=== PATIENT | male | born 1975 | race Hispanic/Latino ===

== ENCOUNTER 2019-01-20 14:17 | Inpatient (IN) | payer SELFPAY ==
[~2019-01-20] VITALS: Ht 185.4 cm; Wt 87.7 kg
[2019-01-20] MEDS: SODIUM CHLORIDE 0.9% 1000ML 1,000 ML IV SCH (12:05)
[2019-01-20] MEDS ORDERED: FAMOTIDINE/PF 20 MG/2 ML VIAL IV ONE (14:39)
[2019-01-20] MEDS ORDERED: METHYLPREDNISOLONE SOD SUCC 125MG/2ML VIAL ONE (14:39)
[2019-01-20] MEDS ORDERED: DiphenhydrAMINE HCL 50 MG/ML VIAL ONE (14:39)
[2019-01-20] MEDS ORDERED: SODIUM CHLORIDE 0.9% 1000ML 1,000 ML IV ONE ×3 (15:16→20:41)
[2019-01-20] MEDS ORDERED: INSULIN HUMULIN R 100 UNIT/ML 3ML ONE ×2 (16:52→19:01)
[2019-01-20 16:59] LABS: BASOPHILS % (AUTO) 0.3 % (0.0-5.0); EOSINOPHILS % (AUTO) 0.4 % (0.0-8.0); HEMATOCRIT 45.8 % (42-54); LYMPHOCYTES % (AUTO) 9.6 % (21.0-51.0); MEAN CORPUSCULAR HEMOGLOBIN 32.2 pg (27.0-33.0); MEAN CORPUSCULAR VOLUME 94.6 fL (79-99); MONOCYTES % (AUTO) 3.8 % (3.0-13.0); NEUTROPHILS % (AUTO) 85.9 % (40.0-77.0); NUCLEATED RED BLOOD CELLS 0.1 % (0.0-0.19); PLATELET COUNT (AUTO) 202 K/uL (130-400); RED BLOOD CELL COUNT(AUTO) 4.85 MIL/uL (4.50-6.20); RED CELL DISTRIBUTION WIDTH 12.7 % (11.0-15.5); WHITE BLOOD COUNT (AUTO) 13.7 K/uL (4.8-10.8)
[2019-01-20 17:14] LABS: ALBUMIN 3.3 g/dL (3.5-5.0); BILIRUBIN,TOTAL 0.6 mg/dL (0.2-1.0); CREATININE 0.7 mg/dL (0.5-1.5); POTASSIUM 4.3 mmol/L (3.5-5.1); TOTAL PROTEIN, SERUM 6.7 g/dL (6.0-8.3)
[2019-01-20] MEDS ORDERED: SODIUM CHLORIDE 0.9% 100 ML IV ONE (19:00)
[2019-01-20] MEDS ORDERED: INSULIN REGULAR, HUMAN 3ML 100 UNIT in SODIUM CHLORIDE 0.9% 99 ML IV PRN ×2 (21:00)
[2019-01-20 21:12] LABS: APPEARANCE,URINE Clear (CLEAR); BILIRUBIN,URINE Negative (NEGATIVE); COLOR,URINE Yellow (YELLOW); GLUCOSE, URINE (UA) >=1000 mg/dL (NEGATIVE); KETONES,URINE 40 mg/dL (NEGATIVE); LEUKOCYTE ESTERASE ,URINE Negative (NEGATIVE); NITRATE,URINE Negative (NEGATIVE); OCCULT BLOOD,URINE Negative (NEGATIVE); PROTEIN,URINE Negative (NEGATIVE)
[2019-01-20] MEDS ORDERED: NITROGLYCERIN 0.4 MG SL TAB SL PRN (21:15)
[2019-01-20] MEDS ORDERED: MAG HYDROX/AL HYDROX/SIMETH ES 30 ML SUSP UDCUP PO PRN (21:15)
[2019-01-20] MEDS ORDERED: GUAIFENESIN SUGAR-FREE 100 MG/5 ML UDCUP PO PRN (21:15)
[2019-01-20] MEDS ORDERED: ACETAMINOPHEN 325 MG TAB PO PRN ×2 (21:15)
[2019-01-20] MEDS ORDERED: LACTULOSE 20 GM/30 ML UDCUP PO PRN (21:15)
[2019-01-20] MEDS ORDERED: ONDANSETRON HCL 4 MG/2 ML VIAL IVP PRN (21:15)
[2019-01-20 21:27] LABS: BACTERIA,URINE None Seen /HPF (None Seen); RBC,URINE 0-1 /HPF (0-1); WBC,URINE 0-1 /HPF (0-1)
[2019-01-21 06:36] LABS: BASOPHILS % (AUTO) 0.4 % (0.0-5.0); HEMATOCRIT 42.8 % (42-54); LYMPHOCYTES % (AUTO) 21.6 % (21.0-51.0); MEAN CORPUSCULAR HEMOGLOBIN 32.7 pg (27.0-33.0); MEAN CORPUSCULAR HGB CONC 34.7 g/dL (32.0-36.0); MEAN CORPUSCULAR VOLUME 94.2 fL (79-99); MONOCYTES % (AUTO) 5.1 % (3.0-13.0); NEUTROPHILS % (AUTO) 72.9 % (40.0-77.0); PLATELET COUNT (AUTO) 187 K/uL (130-400); RED BLOOD CELL COUNT(AUTO) 4.55 MIL/uL (4.50-6.20); RED CELL DISTRIBUTION WIDTH 12.9 % (11.0-15.5)
[2019-01-21 06:46] LABS: CREATININE 0.4 mg/dL (0.5-1.5); POTASSIUM 3.9 mmol/L (3.5-5.1)
[2019-01-21 06:53] LABS: BILIRUBIN,TOTAL 0.5 mg/dL (0.2-1.0); TOTAL PROTEIN, SERUM 5.8 g/dL (6.0-8.3)
[2019-01-21] MEDS: ENOXAPARIN SODIUM 40 MG/0.4 ML SYRINGE SQ SCH (09:00)
[2019-01-21] MEDS: FAMOTIDINE 20MG TAB 20 MG TAB PO SCH ×2 (09:00→21:21)
[2019-01-21] MEDS ORDERED: DIPHENHYDRAMINE HCL 25 MG CAPSULE PO PRN (10:45)
[2019-01-21 12:18] VITALS: BP 123/81
[2019-01-21] MEDS: INSULIN LISPRO 100 UNIT/ML 3ML SQ SCH ×2 (12:26→17:10)
[2019-01-21 16:00] VITALS: BP 114/78
[2019-01-21] MEDS: SODIUM CHLORIDE 0.9% 1000ML 1,000 ML IV SCH ×2 (17:00→22:53)
[2019-01-21 20:00] VITALS: BP 136/87
[2019-01-21] MEDS ORDERED: INSULIN HUMULIN R 100 UNIT/ML 3ML ONE (22:43)
[2019-01-21] MEDS: INSULIN HUMULIN R 100 UNIT/ML 3ML SQ SCH (22:58)
[2019-01-21] MEDS: INSULIN GLARGINE 100 UNITS/ML 10 ML VIAL SQ SCH (23:01)
[2019-01-22] VITALS: BP 139/97
[2019-01-22 04:00] VITALS: BP 127/77
[2019-01-22] MEDS: SODIUM CHLORIDE 0.9% 1000ML 1,000 ML IV SCH ×3 (06:54→19:40)
[2019-01-22] MEDS: INSULIN HUMULIN R 100 UNIT/ML 3ML SQ SCH ×4 (06:57→21:45)
[2019-01-22] MEDS: INSULIN LISPRO 100 UNIT/ML 3ML SQ SCH ×3 (06:58→18:01)
[2019-01-22 08:00] VITALS: BP 126/79
[2019-01-22] MEDS: ENOXAPARIN SODIUM 40 MG/0.4 ML SYRINGE SQ SCH (08:59)
[2019-01-22] MEDS: FAMOTIDINE 20MG TAB 20 MG TAB PO SCH ×2 (08:59→21:39)
[2019-01-22] MEDS ORDERED: PREDNISONE 10 MG TABLET PO SCH (09:00)
[2019-01-22 11:42] VITALS: BP 150/97
[2019-01-22 16:00] VITALS: BP 137/73
--- NOTE | 2019-01-22 18:00 | NUR ---
INITIAL MET W PT ALONE. DM X 10 YEARS, NO MD, GETS HIS INSULIN FROM HIS FRIENDS- STATES WENT ONCE TO [place] BUT THEIR WAS A LONG WAITING LIST STATES DID NOT FILL OUT THE FORM BECAUSE HE DID NOT WANT TO GIVE INFORMATION ABOUT THE FMAILY HE WAS LIVING WITH ENCOURAGE TO REAPPLY- NOW LIVES W SPOUSE- NO INCOME, [employer] DISCUSSED Addendum: 01/22/19 at 1843 by ASHLY LÓPEZ RN CM Amended: Links added.
[2019-01-22 20:00] VITALS: BP 142/84
[2019-01-22] MEDS ORDERED: INSULIN GLARGINE 100 UNITS/ML 10 ML VIAL SQ SCH (21:00)
[2019-01-22] MEDS: INSULIN GLARGINE 100 UNITS/ML 10 ML VIAL SQ SCH (21:46)
[2019-01-23] VITALS: BP 149/92
[2019-01-23] MEDS: SODIUM CHLORIDE 0.9% 1000ML 1,000 ML IV SCH ×2 (02:58→11:49)
[2019-01-23 04:00] VITALS: BP 145/79
[2019-01-23 06:13] LABS: BASOPHILS % (AUTO) 0.3 % (0.0-5.0); HEMATOCRIT 40.1 % (42-54); LYMPHOCYTES % (AUTO) 45.7 % (21.0-51.0); MEAN CORPUSCULAR HEMOGLOBIN 33.3 pg (27.0-33.0); MEAN CORPUSCULAR HGB CONC 34.3 g/dL (32.0-36.0); MEAN CORPUSCULAR VOLUME 97.1 fL (79-99); MONOCYTES % (AUTO) 6.9 % (3.0-13.0); NEUTROPHILS % (AUTO) 46.1 % (40.0-77.0); NUCLEATED RED BLOOD CELLS 0.1 % (0.0-0.19); PLATELET COUNT (AUTO) 167 K/uL (130-400); RED BLOOD CELL COUNT(AUTO) 4.13 MIL/uL (4.50-6.20); RED CELL DISTRIBUTION WIDTH 12.6 % (11.0-15.5); WHITE BLOOD COUNT (AUTO) 9.9 K/uL (4.8-10.8)
[2019-01-23 06:19] LABS: HEMOGLOBIN A1C 12.9 % (4.0-6.0)
[2019-01-23 06:22] LABS: ALBUMIN 2.5 g/dL (3.5-5.0); BILIRUBIN,TOTAL 0.1 mg/dL (0.2-1.0); CREATININE 0.7 mg/dL (0.5-1.5); POTASSIUM 3.5 mmol/L (3.5-5.1); TOTAL PROTEIN, SERUM 5.3 g/dL (6.0-8.3)
[2019-01-23] MEDS: INSULIN HUMULIN R 100 UNIT/ML 3ML SQ SCH ×4 (06:57→21:00)
[2019-01-23] MEDS: INSULIN LISPRO 100 UNIT/ML 3ML SQ SCH ×3 (06:58→16:57)
[2019-01-23 07:54] VITALS: BP 127/83
[2019-01-23] MEDS: ENOXAPARIN SODIUM 40 MG/0.4 ML SYRINGE SQ SCH (09:00)
[2019-01-23 11:38] VITALS: BP 139/89
[2019-01-23] MEDS: FAMOTIDINE 20MG TAB 20 MG TAB PO SCH ×2 (11:50→21:00)
[2019-01-23 16:00] VITALS: BP 130/85
[2019-01-23 20:00] VITALS: BP 142/96
[2019-01-23] MEDS: INSULIN GLARGINE 100 UNITS/ML 10 ML VIAL SQ SCH (21:00)
[2019-01-24 00:01] VITALS: BP 135/91
[2019-01-24 04:14] VITALS: BP 138/86
[2019-01-24 04:43] LABS: BASOPHILS % (AUTO) 0.5 % (0.0-5.0); EOSINOPHILS % (AUTO) 1.3 % (0.0-8.0); HEMATOCRIT 44.2 % (42-54); LYMPHOCYTES % (AUTO) 44.7 % (21.0-51.0); MEAN CORPUSCULAR HEMOGLOBIN 32.3 pg (27.0-33.0); MEAN CORPUSCULAR HGB CONC 33.5 g/dL (32.0-36.0); MEAN CORPUSCULAR VOLUME 96.5 fL (79-99); MONOCYTES % (AUTO) 6.1 % (3.0-13.0); NEUTROPHILS % (AUTO) 47.4 % (40.0-77.0); PLATELET COUNT (AUTO) 184 K/uL (130-400); RED BLOOD CELL COUNT(AUTO) 4.58 MIL/uL (4.50-6.20); WHITE BLOOD COUNT (AUTO) 10.6 K/uL (4.8-10.8)
[2019-01-24 04:55] LABS: CREATININE 0.8 mg/dL (0.5-1.5); POTASSIUM 4.7 mmol/L (3.5-5.1)
[2019-01-24] MEDS: SODIUM CHLORIDE 0.9% 1000ML 1,000 ML IV SCH ×3 (05:46→12:39)
[2019-01-24] MEDS: INSULIN LISPRO 100 UNIT/ML 3ML SQ SCH ×4 (06:05→16:36)
[2019-01-24] MEDS: INSULIN HUMULIN R 100 UNIT/ML 3ML SQ SCH ×4 (06:06→21:34)
[2019-01-24 08:00] VITALS: BP 138/86
[2019-01-24] MEDS: GLYBURIDE 5 MG TABLET PO SCH (08:56)
[2019-01-24] MEDS: FAMOTIDINE 20MG TAB 20 MG TAB PO SCH ×2 (08:58→21:38)
[2019-01-24] MEDS: ENOXAPARIN SODIUM 40 MG/0.4 ML SYRINGE SQ SCH (09:00)
[2019-01-24] MEDS ORDERED: PREDNISONE 10 MG TABLET PO SCH (09:00)
[2019-01-24 12:00] VITALS: BP 127/83
--- NOTE | 2019-01-24 12:06 | NUR ---
Nutrition intervention: Nutrition consult for HX of DM. Diet education provided. Pt asleep in room at time of RD visit. Pt with no nutritional questions or concerns. May need reenforcement. Encouraged pt to request RD visit before discharge if nutrition concerns arise. Recommend continuing current diet therapy. Addendum: 01/24/19 at [address] RD Amended: Links added.
--- NOTE | 2019-01-24 15:00 | NUR ---
DR. LUZ WILDER HERE TO SEE PATIENT. DR. ESCOBAR INFORMED PATIENT THAT SHE WILL PLAN TO KEEP HIM ONE MORE DAY TO CONTINUE TO MONITOR BLOOD SUGARS BECAUSE PATIENTS BLOOD SUGARS REPORTED ABOVE 400 EARLIER TODAY. PATIENT STATED "I DID NOT RECEIVE ANY INSULIN LAST NIGHT. I DID NOT GET ANY INSULIN UNTIL AROUND 5 O'CLOCK THIS MORNING".
[2019-01-24 15:55] VITALS: BP 134/93
[2019-01-24 20:00] VITALS: BP 136/95
[2019-01-24] MEDS ORDERED: INSULIN GLARGINE 100 UNITS/ML 10 ML VIAL SQ SCH (21:00)
[2019-01-25] VITALS: BP 140/94
[2019-01-25] MEDS: SODIUM CHLORIDE 0.9% 1000ML 1,000 ML IV SCH ×3 (01:00→07:40)
[2019-01-25 04:00] VITALS: BP 115/62
[2019-01-25] MEDS: INSULIN HUMULIN R 100 UNIT/ML 3ML SQ SCH ×2 (05:29→12:22)
[2019-01-25] MEDS: INSULIN LISPRO 100 UNIT/ML 3ML SQ SCH ×2 (05:30→12:22)
[2019-01-25 06:02] LABS: BASOPHILS % (AUTO) 0.7 % (0.0-5.0); EOSINOPHILS % (AUTO) 1.8 % (0.0-8.0); HEMATOCRIT 40.5 % (42-54); LYMPHOCYTES % (AUTO) 46.6 % (21.0-51.0); MEAN CORPUSCULAR HEMOGLOBIN 33.3 pg (27.0-33.0); MEAN CORPUSCULAR HGB CONC 33.9 g/dL (32.0-36.0); MEAN CORPUSCULAR VOLUME 98.1 fL (79-99); MONOCYTES % (AUTO) 6.6 % (3.0-13.0); NEUTROPHILS % (AUTO) 44.3 % (40.0-77.0); NUCLEATED RED BLOOD CELLS 0.2 % (0.0-0.19); PLATELET COUNT (AUTO) 142 K/uL (130-400); RED BLOOD CELL COUNT(AUTO) 4.12 MIL/uL (4.50-6.20); RED CELL DISTRIBUTION WIDTH 12.9 % (11.0-15.5); WHITE BLOOD COUNT (AUTO) 11.7 K/uL (4.8-10.8)
[2019-01-25 06:16] LABS: CREATININE 0.6 mg/dL (0.5-1.5)
[2019-01-25 08:00] VITALS: BP 125/65
[2019-01-25] MEDS: GLYBURIDE 5 MG TABLET PO SCH (09:33)
[2019-01-25] MEDS: FAMOTIDINE 20MG TAB 20 MG TAB PO SCH (09:33)
[2019-01-25] MEDS: ENOXAPARIN SODIUM 40 MG/0.4 ML SYRINGE SQ SCH (09:34)
[2019-01-25] MEDS ORDERED: INSLAN SQ (12:33)
[2019-01-25] MEDS ORDERED: GLYB5 PO (12:33)
[2019-01-25] MEDS ORDERED: INSU100V SQ (12:33)
[2019-01-25] MEDS ORDERED: [UNRECOGNIZED DRUG - CODE] MC (12:36)
--- NOTE | 2019-01-25 12:48 | NUR ---
PT D/C PLAN PT GIVEN INFORMATION BY CM ON HOW TO GET FREE GLUCOMETER MACHINE AND ALSO FREE DM DRUGS, PT ACKNOWLEDGE RECEIPT AND UNDERSTANDING OF INFORMATION GIVEN. INFORMATION PROVIDED IN THE PRESENCE OF IN ROOM. PT SAFE TO BE D/C.
--- NOTE | 2019-01-25 13:40 | NUR ---
EXTENSIVE TEACH BACK EDUCATION GIVEN ABOUT D/C ORDERS SUCCESSFULLY WITH RX GIVEN IV REMOVED, CATHETER INTACT PT DENIES SOB OR CHEST PAIN
== END 2019-01-25 13:45 | disposition home or self-care (01) | DRG 639 ==
LOC: EDH 14:17 → EDHIP 14:18 → 4CH 01-21 11:28
PROVIDERS: ADMIT Family Medicine; ATTEND Family Medicine
DX: E11.00 Type 2 diabetes mellitus with hyperosmolarity without nonketotic hyperglycemic-hyperosmolar coma (NKHHC) (principal); F12.90 Cannabis use, unspecified, uncomplicated; F17.210 Nicotine dependence, cigarettes, uncomplicated; I10 Essential (primary) hypertension; J98.01 Acute bronchospasm; L29.9 Pruritus, unspecified; T78.1XXA Other adverse food reactions, not elsewhere classified, initial encounter; F19.10 Other psychoactive substance abuse, uncomplicated; Z79.4 Long term (current) use of insulin; Z91.19 Patient's noncompliance with other medical treatment and regimen; Y92.89 Other specified places as the place of occurrence of the external cause; Z80.3 Family history of malignant neoplasm of breast
CPT/HCPCS: 36415; 80048; 80053; 81001; 82010; 82948; 83036; 85025; 99291; G0378; J1200; J1650; J1815; J2930; J3490; J7030; J7512